=== PATIENT | female | born 1995 | race Caucasian/White ===

== ENCOUNTER 2020-04-25 06:00 | Inpatient (IN) ==
[2020-04-28] MEDS ORDERED: MISOPROSTOL 100 MCG TABLET VG PRN (00:16)
[2020-04-28] MEDS ORDERED: ONDANSETRON 4 MG TAB.RAPDIS PO PRN (00:16)
[2020-04-28] MEDS ORDERED: DEXTROSE 5%-LACTATED RINGERS 1,000 ML IV PRN (00:16)
[2020-04-28] MEDS ORDERED: OXYTOCIN/DEXTROSE 5%-WATER 30 UNITS/500 ML BAG IV ONE ×2 (00:16→18:56)
[2020-04-28] MEDS ORDERED: RINGER'S SOLUTION,LACTATED 1,000 ML IV ONE (00:16)
--- NOTE | 2020-04-28 09:16 | HP ---
Chief Complaint - Chief Complaint Date of Service: 04/28/20 Time of Service: 08:40 Chief Complaint: induction of labor for post dates History of Present Illness: 25 yo at 40 3/7 wks admitted for induction of labor due to post dates. This complicated by mild transient maternal arrhythmia (resolved) and anemia. Rh positive Rubella immune GBS negative Medical History (Last Reviewed 04/28/20 @ 12:24 by Andrew Lares DO) Anemia Onset Date: 09/21/19 w/ Blighted ovum Onset Date: ~05/2019 Elbow fracture, left Onset Date: ~1999 cast Septate uterus Onset Date: ~05/2019 Surgical History: Surgical History (Last Reviewed 04/28/20 @ 12:24 by Andrew Lares DO) H/O dilation and curettage Onset Date: ~2018 Status post hysteroscopic resection of uterine septum Onset Date: ~05/2019 Family History: Family History (Last Reviewed 04/28/20 @ 12:24 by Andrew Lares DO) Mother Alive and well Father Alive and well Social History: (Last Reviewed 04/28/20 @ 12:24 by Andrew Lares DO) Social History: adopted: No Marital status: household members: spouse number of children: 0 number of grandchildren: 0 current occupational status: employed current occupation: [employer] Highest education level completed: Associate degree: academi Sexually Active: Yes Service: No Tobacco: Smoking Status: Never smoker Alcohol: alcohol intake: never Substance Use: substance use type: does not use Dietary Habits: caffeine: Yes Type: carbonated beverages high-fat food intake: 2 times daily Review Of Systems (GEN) - Review of Systems Generalized/Overall Review: Present: No Symptoms Reported EENTM: Present: No Symptoms Reported Respiratory: Present: No Symptoms Reported Cardiac: Present: No Symptoms Reported Abdominal: Present: No Symptoms Reported Genitourinary: Present: Other - Vaginal pressure Musculoskeletal: Present: No Symptoms Reported Neurological: Present: No Symptoms Reported Skin: Present: No Symptoms Reported Allergies/Adverse Reactions: Allergies Allergy/AdvReac Type Severity Reaction Status Date / Time No Known Allergies Allergy Verified 04/28/20 00:16 Home Medications: HOME MEDICATIONS vitamins no.121-iron 28 mg-folic acid 800 mcg tablet 1 tab PO DAILY tab 09/21/19 [Last Taken 04/27/20] ascorbic acid (vitamin C) 500 mg capsule 500 mg PO DAILY cap 10/20/19 [Last Taken 04/27/20] breast pump See Rx Instructions .ROUTE .MEDSUPPLY #1 ea 01/21/20 [Last Taken Unknown] ferrous sulfate 325 mg (65 mg iron) tablet 325 mg PO BID #30 tab 01/22/20 [Last Taken 04/27/20] Exam - Exam Vital Signs: Vital Signs - Last Taken Temp 36.3 C 04/28/20 01:00 Pulse 84 04/28/20 01:00 Resp 18 04/28/20 01:00 BP 136/75 04/28/20 01:00 Pulse Ox 99 04/28/20 01:00 Constitutional: Present: Alert, Oriented x3, Cooperative, No distress ENT Exam: Present: hearing grossly normal Neck: Absent: thyromegaly Breasts: Present: Exam deferred Respiratory: Present: lungs clear, no respiratory distress Cardiovascular/Chest: Present: regular rate, rhythm, no edema Abdomen: Present: soft, nontender, no rebound tenderness, other - Gravid /Rectal: Present: Other - Cervix 4/80/-1 Extremity: Present: no pedal edema, no calf tenderness Skin Exam: Present: normal color, warm/dry, no cyanosis Neurologic: Present: alert, normal mood/affect, oriented x 3 Appearance: Present: appropriate appearance, appropriate insight Eye contact: Present: cooperative, good eye contact Thoughts: Present: normal thought pattern Diagnostic Studies: Laboratory Results Blood Type O Positive 04/28/20 01:45 Antibody Screen Negative 04/28/20 01:45 Assessment/Plan - Assessment/Plan (1) Post-dates Assessment: Admit for pitocin induction/augmentation of labor. Epidural PRN. Problem: Acute Qualifiers: Post-term type: 40-42 weeks gestation Qualified Code(s): O48.0 - Post-term (2) Anemia Problem: Acute Qualifiers: Anemia type: iron deficiency Iron deficiency anemia type: inadequate di etary iron intake Qualified Code(s): D50.8 - Other iron deficiency anemias
--- NOTE | 2020-04-28 09:17 | PN ---
Progess Note - Interim Date: 04/28/20 Time: 09:16 Narrative: 04/28/20 09:16 Patient rating contractions as moderate Vital signs stable. Pitocin at 2 mu/min. FHT: 140 baseline, reassuring contractions q 2-4 min Cervix: 6/90/0, AROM-moderate meconium Impression: Intrauterine at 40 3/7 weeks induction of labor for postdates. Moderate meconium stained fluid Plan: We will order epidural per patient's request. Mechanical Drawing Teacher notified of meconium fluid.
[2020-04-28] MEDS ORDERED: NALOXONE HCL 1 MG/1 ML SYRG IV PRN (09:24)
[2020-04-28] MEDS ORDERED: BUPIVACAINE HCL/0.9 % NACL/PF 250 ML EP PRN (09:24)
[2020-04-28] MEDS ORDERED: ONDANSETRON HCL/PF 2 MG/ML VIAL IV PRN (09:24)
[2020-04-28] MEDS ORDERED: fentaNYL CITRATE/PF 50 MCG/ML AMPUL IT SCH (09:30)
--- NOTE | 2020-04-28 09:31 | ANES ---
Anesthesia Pre Procedure Eval Vitals/Labs: Last Vital Signs Temp 36.3 C 04/28/20 01:00 Pulse 84 04/28/20 01:00 Resp 18 04/28/20 01:00 BP 136/75 04/28/20 01:00 Pulse Ox 99 04/28/20 01:00 HOME MEDICATIONS vitamins no.121-iron 28 mg-folic acid 800 mcg tablet 1 tab PO DAILY tab 09/21/19 [Last Taken 04/27/20] ascorbic acid (vitamin C) 500 mg capsule 500 mg PO DAILY cap 10/20/19 [Last Taken 04/27/20] breast pump See Rx Instructions .ROUTE .MEDSUPPLY #1 ea 01/21/20 [Last Taken Unknown] ferrous sulfate 325 mg (65 mg iron) tablet 325 mg PO BID #30 tab 01/22/20 [Last Taken 04/27/20] Allergies/Adverse Reactions: Allergies Allergy/AdvReac Type Severity Reaction Status Date / Time No Known Allergies Allergy Verified 04/28/20 00:16 - Planned Procedure Planned Procedure: Induction Medication List Reviewed:: Yes Allergies Verified: Yes Medical History (Last Reviewed 04/28/20 @ 09:30 by Luis Felipe Salter CRNA) Anemia Onset Date: 09/21/19 w/ Blighted ovum Onset Date: ~05/2019 Elbow fracture, left Onset Date: ~1999 cast Septate uterus Onset Date: ~05/2019 Surgical History (Last Reviewed 04/28/20 @ 09:30 by Luis Felipe Salter CRNA) H/O dilation and curettage Onset Date: ~2018 Status post hysteroscopic resection of uterine septum Onset Date: ~05/2019 Family History (Last Reviewed 04/28/20 @ 09:30 by Luis Felipe Salter CRNA) Mother Alive and well Father Alive and well - Family Anesthesia History Family History:: no untoward family reactions to anesthesia, no familial bleeding tendencies, no family history of clotting disorders, no family history of premature - Airway/Neck/Teeth Within Normal Limits:: Yes Teeth Condition: intact Neck Exam: full range of motion Mallampatti Score: 2 Thyromental (T-M) distance: > 6 cm Mandibulo Hyoid distance: > 3 cm - Respiratory Respiratory Physical: lungs clear Sleep Apnea currently treated: No Sleep Apnea by current assessment: No - Cardiovascular Tolerate Activity: Fair Heart Sounds: S1 & S2, Regular - Gastrointestinal NPO since: today - Anesthesia Assessment and Plan ASA Class: PS, II, E Anesthesia Type Plan: Epidural - CSE for labor analgesia
--- NOTE | 2020-04-28 09:47 | ANES ---
Post Anesthesia Discharge - Transfer of Care Transfer of Care handoff given to nurse: Yes - Discharge from PACU Discharge from PACU when meets criteria: Yes - Comfortable post CSE
--- NOTE | 2020-04-28 09:49 | ANES ---
Anesthesia Procedure Note Procedure Note: ANESTHESIA PROCEDURE NOTE Date of Procedure: 04/28/2020 Time of procedure: 9:30 AM. Performed by: MARGARITO Espino CRNA, MSN Home Attendant: Regla Briceño RN. Preprocedure diagnosis: Active labor, labor pain. Post procedure diagnosis: Same. Procedure:Epidural for labor analgesia L3-4. Indications: Labor pain. Findings: See below. Details of the procedure: The patient was placed on the side of the bed in sitting positionand prepped with DuraPrep then draped in a sterile fashion. Lidocaine 1% was infiltrated to the skin and subcutaneous tissues at the level of the L3-4 interspace. An 18-gauge Touhy needle was used to approach the epidural space with loss of resistance technique. Once loss of resistance was achieved a 27-gauge spinal needle was passed through the epidural needle and CSF was contacted. After CSF returned, 20 mcg of fentanyl was injected in the spinal needle was removed the epidural catheter was then threaded approximately 4 cm in the epidural needle was removed. The catheter was taped in place and after careful aspiration 3 mL of 1.5% lidocaine with 1-200,000 epinephrine was injected without change in maternal heart rate or sensorium. . EBL: Minimal. Fluids: N/A. Specimen: N/A. Post procedure condition: The patient tolerated the procedure well with good relief. No complications were noted. Thank you for this consultation. Luis Felipe Salter CRNA, MARGARITO, MSN
--- NOTE | 2020-04-28 11:29 | ANES ---
Post Anesthesia Assessment - Vital Signs Vitals: Last Vital Signs Temp 36.3 C 04/28/20 01:00 Pulse 84 04/28/20 01:00 Resp 18 04/28/20 01:00 BP 136/75 04/28/20 01:00 Pulse Ox 99 04/28/20 01:00 Airway Patency: Normal - Mental Status Level Of Consciousness: Awake, Alert, Appropriate - Pain Level Pain Score: 0 - N/V Assessment Nausea/Vomiting Presence: None Dehydration:: No
--- NOTE | 2020-04-28 18:52 | OR ---
Operative Report - Dictated Report Narrative: Spontaneous vaginal delivery of vigorously crying viable male at 1741 on 04/28/2020 with Apgars 9 and 9, weighing 4091 g in YOAV position with tight nuchal cord x1 and moderate meconium fluid. [Cord clamping delayed approximately 1 minute] Placenta delivered [complete, intact, with three vessel cord] Estimated blood loss: 500 mL due to vaginal lacerations Anesthesia: [epidural] Lacerations: Right sidewall laceration, bilateral labial lacerations, and partial third degree vaginal laceration repaired with 0 Vicryl, 3-0 Vicryl Rapide, and 4-0 Monocryl. History for MU History for MU Definition: * The number of deliveries resulting in a live the patient experienced prior to current hospitalization * The previous delivery of live twins or any live multiple gestation is consid ered one live event. *If primagravida or nulliparous is documented select zero for the number of previous live births. Live Events: Live Events: 0
[2020-04-28] MEDS ORDERED: BENZOCAINE/MENTHOL 81 SPRAY CAN TP PRN (18:56)
[2020-04-28] MEDS ORDERED: GLYCERIN/WITCH HAZEL LEAF 40 APPL BOX TP PRN (18:56)
[2020-04-28] MEDS ORDERED: HYDROCORTISONE 30 APPL TUBE TP PRN (18:56)
[2020-04-28] MEDS ORDERED: BISACODYL 10 MG SUPP.RECT RC PRN (18:56)
[2020-04-28] MEDS ORDERED: IBUPROFEN 800 MG TABLET PO PRN (18:56)
[2020-04-28] MEDS ORDERED: NON-FORMULARY 1 DOSE DOSE (Breast Pump 0 UNIT) PO SCH (19:00)
[2020-04-28] MEDS: oxyCODONE HCL/ACETAMINOPHEN 1 TAB TABLET PO PRN (20:30)
[2020-04-28] MEDS: IBUPROFEN 800 MG TABLET PO PRN (20:31)
[2020-04-28] MEDS: DOCUSATE SODIUM 100 MG CAPSULE PO SCH (20:31)
[2020-04-28] MEDS: FERROUS SULFATE 325 MG TABLET PO SCH (23:13)
--- NOTE | 2020-04-29 08:42 | PN ---
Subjective - Date and Time Seen Date: 04/29/20 Time: 08:32 Objective - Vitals Vitals: Last Vital Signs Temp 36.2 C 04/29/20 00:30 Pulse 84 04/29/20 00:30 Resp 16 04/29/20 00:30 BP 132/61 04/29/20 00:30 Pulse Ox 99 04/29/20 00:30 Patient denies complaints. Breast-feeding Lochia wnl abdomen - soft, nontender Uterus -firm, at umbilicus - 1 no calf tenderness Impression: day #1 - s/p spontaneous vaginal delivery. Partial third-degree vaginal laceration healing well Plan: Continue routine care. Continue stool softeners Cauti Physician Documentation - Urinary Catheter Management Straight Date of Insertion: 04/28/20 Time of Insertion: 10:33 Date of Removal: 04/28/20 Time of Removal: 13:40 Assessment/Plan - Problems/Diagnosis (1) Post-dates Problem: Acute Qualifiers: Post-term type: 40-42 weeks gestation Qualified Code(s): O48.0 - Post-term (2) Anemia Problem: Acute Qualifiers: Anemia type: iron deficiency Iron deficiency anemia type: inadequate dietary iron intake Qualified Code(s): D50.8 - Other iron deficiency anemias
[2020-04-29] MEDS: FERROUS SULFATE 325 MG TABLET PO SCH ×2 (08:55→21:09)
[2020-04-29] MEDS: PRENATAL VITS96/IRON FUM/FOLIC 1 TAB TABLET PO SCH (08:55)
[2020-04-29] MEDS: SENNOSIDES 8.6 MG TABLET PO PRN ×2 (08:55→21:09)
[2020-04-29] MEDS: DOCUSATE SODIUM 100 MG CAPSULE PO SCH ×2 (08:55→21:09)
[2020-04-29] MEDS: oxyCODONE HCL/ACETAMINOPHEN 1 TAB TABLET PO PRN ×3 (08:56→21:10)
[2020-04-29] MEDS: IBUPROFEN 800 MG TABLET PO PRN ×3 (08:57→21:09)
[2020-04-29] MEDS: ASCORBIC ACID 500 MG TABLET PO SCH (15:01)
[2020-04-30 07:52] VITALS: BP 142/73
[2020-04-30] MEDS: FERROUS SULFATE 325 MG TABLET PO SCH (09:10)
[2020-04-30] MEDS: PRENATAL VITS96/IRON FUM/FOLIC 1 TAB TABLET PO SCH (09:10)
[2020-04-30] MEDS: DOCUSATE SODIUM 100 MG CAPSULE PO SCH (09:10)
[2020-04-30] MEDS: ASCORBIC ACID 500 MG TABLET PO SCH (09:10)
--- NOTE | 2020-04-30 09:31 | PN ---
Subjective - Date and Time Seen Date: 04/30/20 Time: 09:30 Subjective Narrative: Patient without complaints Objective Objective Narrative: See vital signs - Review of Systems Generalized/Overall Review: Reports: No Symptoms Reported Misc: All systems neg except as marked - Vitals Vitals: Last Vital Signs Temp 36.5 C 04/30/20 07:45 Pulse 100 04/30/20 07:45 Resp 16 04/30/20 07:45 BP 142/73 H 04/30/20 07:45 Pulse Ox 100 04/30/20 07:45 - Exam Constitutional: Present: Alert, Oriented x3, Cooperative, No distress Abdomen: Present: soft, nontender, nondistended Extremity: Present: non-tender, no calf tenderness Skin Exam: Present: normal color, warm/dry, no cyanosis Neurologic: Present: alert, normal mood/affect, oriented x 3 Appearance: Present: appropriate appearance, appropriate insight, neat, no memory impairment Eye contact: Present: cooperative, good eye contact Thoughts: Present: normal thought pattern Cauti Physician Documentation - Urinary Catheter Management Straight Urethral Indwelling: No Date of Insertion: 04/28/20 Time of Insertion: 10:33 Date of Removal: 04/28/20 Time of Removal: 13:40 Assessment/Plan Plan Narrative: PPD 2 s/p Doing well Discharge today Detailed discharge instructions given
== END 2020-04-30 12:55 | disposition home or self-care (01) | DRG 768 ==
LOC: OB 04-28 00:03
PROVIDERS: ADMIT Obstetrics & Gynecology; ATTEND Obstetrics & Gynecology
CPT/HCPCS: 59025; 86850